=== PATIENT | female | born 1995 | race Caucasian/White ===

== ENCOUNTER 2016-07-21 02:14 | Emergency (ER) | payer BC ==
[~2016-07-21] VITALS: Ht 170.2 cm; Wt 81.6 kg
--- NOTE | 2016-07-21 02:44 | PHYS DOC ---
Past Medical History Past Medical History: P.U.D. Additional Past Medical Histor: PTSD Past Surgical History: Cholecystectomy, Tonsillectomy, Other Additional Past Surgical Histo: BREAST REDUCTION Alcohol Use: None Drug Use: None Adult General Chief Complaint Chief Complaint: ALLERGIC REACTION HPI HPI 21 yo female presenting with a moderate allergic reaction after taking her first dose of sertraline tonight around 2230 and then developed some nausea and no vomiting with some mild GI discomfort and chest discomfort. She denies any significant shortness of breath. Pt is speaking in complete sentences and saturating at 97% on RA in no acute distress. Review of Systems Review of Systems Constitutional: Denies fever or chills [] Eyes: Denies change in visual acuity, redness, or eye pain [] HENT: Denies nasal congestion or sore throat [] Respiratory: Denies cough or shortness of breath [] Cardiovascular: No additional information not addressed in HPI [] GI: Denies abdominal pain, has nausea, denies vomiting, denies bloody stools, denies diarrhea [] : Denies dysuria or hematuria [] Musculoskeletal: Denies back pain or joint pain [] Integument: Denies rash or skin lesions [] Neurologic: Denies headache, focal weakness or sensory changes [] Endocrine: Denies polyuria or polydipsia [] Current Medications Current Medications Current Medications Medications (Trade) Dose Ordered Sig/Chrystal Start Time Stop Time Status Last Admin Dose Admin Diphenhydramine HCl (Benadryl) 25 mg 1X ONCE 07/21/16 03:00 07/21/16 03:01 DC 07/21/16 02:41 25 MG Famotidine 20 mg 20 mg 1X ONCE 07/21/16 03:00 07/21/16 03:01 DC 07/21/16 02:41 20 MG Methylprednisolone Sodium Succinate (Solu-Medrol 125mg Vial) 125 mg 1X ONCE 07/21/16 03:00 07/21/16 03:01 DC 07/21/16 02:40 125 MG Ondansetron HCl (Zofran) 4 mg 1X ONCE 07/21/16 03:00 07/21/16 03:01 DC 07/21/16 02:47 4 MG Sodium Chloride (Iv Sodium Chloride 0.9% 1000ml Bag) 1,000 ml @ 1,000 mls/hr Q1H 07/21/16 03:00 07/21/16 03:59 07/21/16 02:41 1,000 MLS/HR Allergies Allergies Allergies Coded Allergies Type Severity Reaction Last Updated Verified Penicillins Allergy Intermediate Nausea and Vomiting 08/09/14 Yes Physical Exam Physical Exam Constitutional: Well developed, well nourished, no acute distress, non-toxic appearance. [] HENT: Normocephalic, atraumatic, bilateral external ears normal, oropharynx moist, no oral exudates, nose normal. [] Eyes: PERRLA, EOMI, conjunctiva normal, no discharge. [] Neck: Normal range of motion, no tenderness, supple, no stridor. [] Cardiovascular:Heart rate regular rhythm, no murmur [] Lungs & Thorax: Bilateral breath sounds clear to auscultation [] Abdomen: Bowel sounds normal, soft, no tenderness, no masses, no pulsatile masses. [] Skin: Warm, dry, no erythema, no rash. [] Back: No tenderness, no CVA tenderness. [] Extremities: No tenderness, no cyanosis, no clubbing, ROM intact, no edema. [] Neurologic: Alert and oriented X 3, normal motor function, normal sensory function, no focal deficits noted. [] Psychologic: Affect normal, judgement normal, mood normal. [] Current Patient Data Vital Signs Vital Signs Date Time Temp Pulse Resp B/P Pulse Ox O2 Delivery O2 Flow Rate FiO2 07/21/16 02:50 98.6 85 16 117/67 97 Room Air 98.6 Lab Values Laboratory Tests Test 07/21/16 03:11 07/21/16 03:16 Urine Test Negative (NEG) POC Urine HCG, Qualitative Hcg negative (Negative) EKG EKG [] Radiology/Procedures Radiology/Procedures [] Course & Med Decision Making Course & Med Decision Making Pertinent Labs and Imaging studies reviewed. (See chart for details) 21-year-old females have a mild allergic reaction will be given IV doses of Benadryl, Pepcid, site Medrol, and a fluid bolus. In no acute distress at this time saturating at 98% on room air. A counselor at length that she is to discontinue the medication she took to follow closely with her primary care doctor. I'll be prescribing her also a course of steroids and Benadryl. On my final reassessment, the patient feels much improved will be discharged with a course of prednisone and Zofran to follow closely with her primary care doctor to be placed on alternative therapy and to discontinue sertraline use. Amarjit Disclaimer Amarjit Disclaimer This electronic medical record was generated, in whole or in part, using a voice recognition dictation system. Departure Departure Impression: Primary Impression: Adverse drug reaction Disposition: HOME, SELF-CARE Admitting Physician: Other Condition: STABLE Referrals: EM BRUCE MD (PCP) Patient Instructions: Drug Reaction, GI Intolerance Additional Instructions: Please take your steroid and discontinue your use of sertraline. Follow up closely with your primary doctor to be placed on different medication. Return to the ER immediately if you develop any difficulty breathing of if your symptoms should return. Scripts Prednisone 50 Mg [id number] Mg PO DAILY #4 TAB Prov:MARIA ISABEL GONZALEZ DO 07/21/16 Ondansetron Hcl (Zofran)4 Mg Tablet4 Mg PO BID PRN NAUSEA/VOMITING #10 TAB Prov:MARIA ISABEL GONZALEZ DO 07/21/16 MARIA ISABEL GONZALEZ DO Jul 21, 2016 02:44
[2016-07-21] MEDS ORDERED: DIPHENHYDRAMINE 50 MG/ML VIAL IV ONE (03:00)
[2016-07-21] MEDS ORDERED: ONDANSETRON PF 4 MG/2 ML VIAL. IV ONE (03:00)
[2016-07-21] MEDS ORDERED: IV NORMAL SALINE 1000ML BAG 1,000 ML IV SCH (03:00)
[2016-07-21] MEDS ORDERED: methylPREDNISolone SOD SUCC PF 125 MG/2 ML VIAL. IV ONE (03:00)
[2016-07-21] MEDS ORDERED: FAMOTIDINE 20 MG/2 ML VIAL IVP ONE (03:00)
[2016-07-21 03:25] LABS: NEG OBC UR NEG; POS OBC UR POS
[2016-07-21] MEDS ORDERED: PRED50TA PO (03:40)
[2016-07-21] MEDS ORDERED: ONDA4TAB7 PO (03:40)
[2016-07-21 03:46] VITALS: BP 102/52
== END 2016-07-21 04:02 | disposition home or self-care (01) ==
LOC: ER 02:14
DX: T43.225A Adverse effect of selective serotonin reuptake inhibitors, initial encounter (principal); R11.0 Nausea; R07.89 Other chest pain; F43.10 Post-traumatic stress disorder, unspecified; Z88.0 Allergy status to penicillin; Y92.89 Other specified places as the place of occurrence of the external cause
CPT/HCPCS: 81025; 84703; 96361; 96374; 96375; 99284; J1200; J2405; J2930; J7030; S0028

== ENCOUNTER 2016-08-03 00:50 | Emergency (ER) | payer BC ==
[~2016-08-03] VITALS: Ht 167.6 cm; Wt 88.9 kg
[~2016-08-03 00:50] MED LIST: ONDA4TAB7 PO; PRED50TA PO
[2016-08-03 01:15] VITALS: BP 130/88
[2016-08-03] MEDS ORDERED: ONDANSETRON ODT 4 MG TAB.RAPDIS PO ONE (01:30)
[2016-08-03] MEDS ORDERED: ONDA4TAB7 PO (02:15)
[2016-08-03] MEDS ORDERED: BENZ100C PO (02:15)
[2016-08-03 02:16] LABS: OBC FLU VALID
[2016-08-03] MEDS ORDERED: BENZONATATE 100 MG CAPSULE. PO ONE (02:30)
[2016-08-03] MEDS ORDERED: NAPROXEN 250 MG TABLET PO ONE (02:30)
--- NOTE | 2016-08-03 07:42 | ED.ADGEN ---
Past Medical History Past Medical History: Anxiety, Depression, P.U.D. Additional Past Medical Histor: PTSD, ULCERS HYPOGLYCEMIA Past Surgical History: Cholecystectomy, Tonsillectomy, Other Additional Past Surgical Histo: BREAST REDUCTION Alcohol Use: None Drug Use: None Adult General Chief Complaint Chief Complaint: FLU SYMPTOM HPI HPI Patient is a 21 year old woman, history of PTSD, GERD, anxiety, who presents to the emergency department with a complaint of generalized body aches, malaise , cough, sore throat, rhinorrhea, fever, chills, nausea, vomiting and diarrhea over the past several days. Patient denies any sick contacts or exposures. States that she did not receive a flu vaccination this year. States that she did take ibuprofen at home several hours before coming to the ED. Is currently on her menses. Multiple episodes of vomiting and diarrhea, food and fluid, no bloody stools or bloody emesis. No injuries. No urinary complaints. No recent travel or surgery, no exposures. Review of Systems Review of Systems Constitutional: Fevers and chills. Body aches. Eyes: Denies change in visual acuity. [] HENT: Nasal congestion and sore throat. Respiratory: No shortness of breath, cough is nonproductive. Cardiovascular: Denies chest pain or edema. [] GI: Epigastric abdominal pain, nausea, vomiting, diarrhea, no bloody stools or bloody emesis. : Denies dysuria. [] Musculoskeletal: Denies back pain or joint pain. [] Integument: Denies rash. [] Neurologic: Denies headache, focal weakness or sensory changes. [] Endocrine: Denies polyuria or polydipsia. [] Lymphatic: Denies swollen glands. [] Psychiatric: Denies depression or anxiety. [] Current Medications Current Medications Current Medications Medications (Trade) Dose Ordered Sig/Chrystal Start Time Stop Time Status Last Admin Dose Admin Benzonatate (Tessalon Perle) 100 mg 1X ONCE 08/03/16 02:30 08/03/16 02:31 DC Naproxen (Naprosyn) 250 mg 1X ONCE 08/03/16 02:30 08/03/16 02:31 DC Ondansetron HCl (Zofran Odt) 4 mg 1X ONCE 08/03/16 01:30 08/03/16 01:31 DC 08/03/16 01:31 4 MG Allergies Allergies Allergies Coded Allergies Type Severity Reaction Last Updated Verified Penicillins Allergy Intermediate Nausea and Vomiting 08/09/14 Yes sertraline Allergy Intermediate 08/03/16 Yes Physical Exam Physical Exam Constitutional: Well developed, well nourished, no acute distress, non-toxic appearance. [] HENT: Normocephalic, atraumatic, bilateral external ears normal, oropharynx moist, oropharynx is mildly injected, postnasal drip, with mild swelling of the turbinates with clear rhinorrhea. Eyes: PERRLA, EOMI, conjunctiva normal, no discharge. [] Neck: Normal range of motion, no tenderness, supple, no stridor. [] Cardiovascular:Heart rate regular rhythm, no murmur, S1, S2, rubs or gallops. [] Lungs & Thorax: Bilateral breath sounds clear to auscultation , no wheezing, rhonchi, rales. No wall crepitus, patient with mild tenderness palpation in the lateral ribs and epigastric region. Abdomen: Bowel sounds normal, soft, mild initial patient in the epigastric region, no rebound, rigidity, no guarding, no masses, no pulsatile masses. [] Skin: Warm, dry, no erythema, no rash. [] Back: No tenderness, no CVA tenderness. [] Extremities: No tenderness, no cyanosis, no clubbing, ROM intact, no edema. [ Negative Homans sign.] Neurologic: Alert and oriented X 3, normal motor function, normal sensory function, no focal deficits noted. [] Psychologic: Affect normal, judgement normal, mood normal. [] Current Patient Data Vital Signs Vital Signs Date Time Temp Pulse Resp B/P Pulse Ox O2 Delivery O2 Flow Rate FiO2 08/03/16 01:15 97.8 81 16 130/88 97 Room Air 97.8 Lab Values Laboratory Tests Test 08/03/16 00:25 08/03/16 01:20 POC Urine HCG, Qualitative Hcg negative (Negative) Influenza Type A Antigen Negative (NEGATIVE) Influenza Type B Antigen Negative (NEGATIVE) EKG EKG ECG: Rhythm strip: Sinus rhythm, heart rate 81 beats/minute, no ectopy. As interpreted by me. Radiology/Procedures Radiology/Procedures Not indicated. [] Course & Med Decision Making Course & Med Decision Making Pertinent Labs and Imaging studies reviewed. (See chart for details) Patient's examination and history is consistent with a viral infection. Patient is tolerating fluids without issue. Is afebrile in the emergency department without use of antipyretics. Vital signs within normal limits. No evidence of lower airspace disease, no indication for additional imaging. Influenza flu swab and hCG ordered. I did discuss use of supportive measures including a Profen, acetaminophen, Tessalon Perle, and Zofran, along with dietary instructions and stay well-hydrated and rest with patient. Patient was given Zofran in the ED, no x-rays episodes of vomiting during her course. Patient stated she nurse that she was not willing to wait for her flu swab, patient was given instructions and medications including Tessalon Perle over instructions. Patient exited the emergency department with her . Flu swab did result and was negative. Dragon Disclaimer Dragon Disclaimer This electronic medical record was generated, in whole or in part, using a voice recognition dictation system. Departure Impression: Primary Impression: Viral infection Disposition: 01 HOME, SELF-CARE Condition: IMPROVED Scripts Ondansetron Hcl (Zofran)4 Mg Tablet1 Tab PO PRN Q6-8HRS #10 TAB Prov:CLARENCE MATTSON DO 08/03/16 Benzonatate (Tessalon Perle)100 Mg [id number] Mg PO TID PRN COUGH #12 CAP Prov:CLARENCE MATTSON DO 08/03/16 CLARENCE MATTSON DO Aug 03, 2016 07:42
== END 2016-08-03 02:20 | disposition home or self-care (01) ==
LOC: ER 00:50
DX: B34.9 Viral infection, unspecified (principal); F43.10 Post-traumatic stress disorder, unspecified; K21.9 Gastro-esophageal reflux disease without esophagitis; Z87.11 Personal history of peptic ulcer disease; Z90.49 Acquired absence of other specified parts of digestive tract; Z90.89 Acquired absence of other organs; Z88.0 Allergy status to penicillin; Z88.8 Allergy status to other drugs, medicaments and biological substances
CPT/HCPCS: 81025; 87804; 99284; Q0162

== ENCOUNTER 2016-10-28 12:33 | Emergency (ER) | payer BC ==
[~2016-10-28] VITALS: Ht 167.6 cm; Wt 83.5 kg
[~2016-10-28 12:33] MED LIST changes: +BENZ100C PO
--- NOTE | 2016-10-28 13:12 | ED.ADGEN ---
Past Medical History Past Medical History: Anxiety, Depression, P.U.D. Additional Past Medical Histor: PTSD, ULCERS HYPOGLYCEMIA Past Surgical History: Cholecystectomy, Tonsillectomy, Other Additional Past Surgical Histo: BREAST REDUCTION Alcohol Use: None Drug Use: None Adult General Chief Complaint Chief Complaint: CHEST WALL PAIN HPI HPI Patient is a 21 year old female with h/o PTSD who presents with substernal chest pain radiating to neck and left arm. Symptoms been intermittent and started while at work approximately 3 hours prior to ED arrival. Patient reports anxiety and history of PTSD. Also reports left shoulder pain, tenderness worse with palpation and repeated arm movement. 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 She denies shortness breath, palpitations, leg pain or swelling. No history of DVT or PE. Patient's last menstrual period was 5 weeks ago. Review of Systems Review of Systems ROS as per HPI. Allergies Allergies Allergies Coded Allergies Type Severity Reaction Last Updated Verified Penicillins Allergy Intermediate Nausea and Vomiting 08/09/14 Yes sertraline Allergy Intermediate 08/03/16 Yes Physical Exam Physical Exam Constitutional: Well developed, well nourished, anxious, flickering of upper eyelids while talking. HENT: Normocephalic, atraumatic, bilateral external ears normal, oropharynx moist, no oral exudates, nose normal. Eyes: PERRL. Neck: Normal range of motion, no tenderness. Cardiovascular:Heart rate regular rhythm, no murmur. Neg Homans 's signs. Lungs & Thorax: Bilateral breath sounds clear to auscultation. Abdomen: Bowel sounds normal, soft, no tenderness. Skin: Warm, dry. Back: No tenderness. Extremities: Principal left shoulder pain. Worse with palpation range of motion. Neurologic: Alert and oriented X 3, normal motor function, normal sensory function, no focal deficits noted. Psychologic: Affect, anxious Current Patient Data Vital Signs Vital Signs Date Time Temp Pulse Resp B/P (MAP) Pulse Ox O2 Delivery O2 Flow Rate FiO2 10/28/16 15:02 80 16 101/69 (80) 97 Room Air 10/28/16 12:40 98.6 98.6 Lab Values Laboratory Tests Test 10/28/16 13:20 White Blood Count 7.3 x10^3/uL (4.0-11.0) Red Blood Count 4.35 x10^6/uL (3.50-5.40) Hemoglobin 12.7 g/dL (12.0-15.5) Hematocrit 37.3 % (36.0-47.0) Mean Corpuscular Volume 86 fL (79-100) Mean Corpuscular Hemoglobin 29 pg (25-35) Mean Corpuscular Hemoglobin Concent 34 g/dL (31-37) Red Cell Distribution Width 12.5 % (11.5-14.5) Platelet Count 236 x10^3/uL (140-400) Neutrophils (%) (Auto) 54 % (31-73) Lymphocytes (%) (Auto) 30 % (24-48) Monocytes (%) (Auto) 8 % (0-9) Eosinophils (%) (Auto) 6 % (0-3) H Basophils (%) (Auto) 1 % (0-3) Neutrophils # (Auto) 4.0 x10^3uL (1.8-7.7) Lymphocytes # (Auto) 2.2 x10^3/uL (1.0-4.8) Monocytes # (Auto) 0.6 x10^3/uL (0.0-1.1) Eosinophils # (Auto) 0.4 x10^3/uL (0.0-0.7) Basophils # (Auto) 0.1 x10^3/uL (0.0-0.2) D-Dimer (Mary) < 0.27 ug/mlFEU Sodium Level 138 mmol/L (136-145) Potassium Level 3.5 mmol/L (3.5-5.1) Chloride Level 105 mmol/L (98-107) Carbon Dioxide Level 27 mmol/L (21-32) Anion Gap 6 (6-14) Blood Urea Nitrogen 8 mg/dL (7-20) Creatinine 0.7 mg/dL (0.6-1.0) Estimated GFR (Cockcroft-Gault) 103.7 BUN/Creatinine Ratio 11 (6-20) Glucose Level 93 mg/dL (70-99) Calcium Level 9.0 mg/dL (8.5-10.1) Total Bilirubin 0.2 mg/dL (0.2-1.0) Aspartate Amino Transferase (AST) 14 U/L (15-37) L Alanine Aminotransferase (ALT) 17 U/L (14-59) Alkaline Phosphatase 79 U/L (46-116) Total Protein 7.1 g/dL (6.4-8.2) Albumin 3.8 g/dL (3.4-5.0) Albumin/Globulin Ratio 1.2 (1.0-1.7) Serum Test, Qualitative Negative (NEG) Laboratory Tests 10/28/16 13:20 Laboratory Tests 10/28/16 13:20 EKG EKG [] Radiology/Procedures Radiology/Procedures [] Course & Med Decision Making Course & Med Decision Making Pertinent Labs and Imaging studies reviewed. (See chart for details) [Reproducible shoulder pains. Chronic anxiety. Patient reassured. Patient instructed to follow up with PCP. Amarjit Disclaimer Dragon Disclaimer This electronic medical record was generated, in whole or in part, using a voice recognition dictation system. MARK WALTERS DO Oct 28, 2016 13:12
[2016-10-28 13:31] LABS: BASO # 0.1 x10^3/uL (0.0-0.2); BASO % 1 % (0-3); EOS % 6 % (0-3); HEMATOCRIT 37.3 % (36.0-47.0); HEMOGLOBIN 12.7 g/dL (12.0-15.5); LYMPH # 2.2 x10^3/uL (1.0-4.8); LYMPH % 30 % (24-48); MEAN CORPUSCULAR HEMOGLOBIN 29 pg (25-35); MEAN CORPUSCULAR HGB CONC 34 g/dL (31-37); MEAN CORPUSCULAR VOLUME 86 fL (79-100); MONO % 8 % (0-9); NEUT % 54 % (31-73); PLATELET COUNT 236 x10^3/uL (140-400); RED BLOOD COUNT 4.35 x10^6/uL (3.50-5.40); RED CELL DISTRIBUTION WIDTH 12.5 % (11.5-14.5); WHITE BLOOD COUNT 7.3 x10^3/uL (4.0-11.0)
[2016-10-28 13:37] LABS: CREATININE 0.7 mg/dL (0.6-1.0); GFR 103.7; POTASSIUM 3.5 mmol/L (3.5-5.1)
[2016-10-28 13:43] LABS: ALBUMIN 3.8 g/dL (3.4-5.0); ALBUMIN/GLOBULIN RATIO 1.2 (1.0-1.7); TOTAL BILIRUBIN 0.2 mg/dL (0.2-1.0); TOTAL PROTEIN 7.1 g/dL (6.4-8.2)
[2016-10-28 13:50] LABS: NEG OBC SER NEG; POS OBC SER POS
--- NOTE | 2016-10-28 14:23 | EKG ---
[facility] [address] [place] [address] Test Date: 2016-10-28 Test Time: 12:40:42 Pat Name: YORDAN FELDER Department: Room: Gender: F Hoop Puncher: : 1995 Requested By: MARK WALTERS Order Number: [id number] Reading MD: Curtis Oden Measurements Intervals Coleman Rate: 77 P: 34 UT: 144 QRS: 43 QRSD: 82 T: 16 QT: 380 QTc: 432 Interpretive Statements SINUS RHYTHM Electronically Signed On 10-29-2016 11:07:13 CDT by Curtis Oden
[2016-10-28 15:02] VITALS: BP 101/69
== END 2016-10-28 15:08 | disposition home or self-care (01) ==
LOC: ER 12:33
DX: M25.512 Pain in left shoulder (principal); F41.9 Anxiety disorder, unspecified; F43.10 Post-traumatic stress disorder, unspecified; F32.9 Major depressive disorder, single episode, unspecified; Z88.0 Allergy status to penicillin; Z87.11 Personal history of peptic ulcer disease; Z90.49 Acquired absence of other specified parts of digestive tract; Z88.8 Allergy status to other drugs, medicaments and biological substances
CPT/HCPCS: 36415; 80053; 84703; 85027; 85379; 93005; 99285-25

== ENCOUNTER 2017-04-14 14:38 | Emergency (ER) | payer BC ==
[2017-04-14] MEDS ORDERED: IV NORMAL SALINE 1000ML BAG 1,000 ML IV SCH (15:40)
[2017-04-14 15:52] LABS: BILIRUBIN,URINE NEGATIVE (NEG); GLUCOSE,URINE NEGATIVE (NEG); NITRITE,URINE NEGATIVE (NEG); PROTEIN,URINE NEGATIVE (NEG-TRACE); UROBILINOGEN,URINE 0.2 mg/dL (0.2 mg/dL)
--- NOTE | 2017-04-14 15:53 | PHYS DOC ---
Past Medical History Past Medical History: Anxiety, Depression, P.U.D. Additional Past Medical Histor: PTSD, ULCERS HYPOGLYCEMIA Past Surgical History: Cholecystectomy, Tonsillectomy, Other Additional Past Surgical Histo: BREAST REDUCTION Alcohol Use: None Drug Use: None Adult General Chief Complaint Chief Complaint: ABDOMINAL PAIN IN HPI HPI Patient is a 22 year old female who presents with complaint of lower abdominal pain. Patient is approximately 8 weeks with last menstrual period on January 24, 2017. Patient states that she has been having intermittent lower abdominal and pelvic cramping. On my evaluation, the patient rates her pain currently is 8 out of 10. Patient notes that she had small pinkish discharge earlier today but has not noticed any bleeding associated with her symptoms. Patient has had nausea but no vomiting. The patient is currently following with Dr. Tyler for care. Patient has not taken any medications to help with her symptoms. Patient states that she has been drinking water in normal amounts but has not been eating well due to nausea. Review of Systems Review of Systems Constitutional: Denies fever or chills [] Eyes: Denies change in visual acuity, redness, or eye pain [] HENT: Denies nasal congestion or sore throat [] Respiratory: Denies cough or shortness of breath [] Cardiovascular: Denies chest pain or edema[] GI: Lower abdominal and pelvic pain, nausea, denies vomiting or diarrhea[] : Denies dysuria or hematuria [] Musculoskeletal: Denies back pain or joint pain [] Integument: Denies rash or skin lesions [] Neurologic: Denies headache, focal weakness or sensory changes [] All other systems were reviewed and found to be within normal limits, except as documented in this note. Current Medications Current Medications Current Medications Medications (Trade) Dose Ordered Sig/[facility] Start Time Stop Time Status Last Admin Dose Admin Acetaminophen (Tylenol) 650 mg 1X ONCE 04/14/17 16:00 04/14/17 16:01 DC 04/14/17 16:12 650 MG Ondansetron HCl (Zofran) 4 mg 1X ONCE 04/14/17 16:00 04/14/17 16:01 DC 04/14/17 16:12 4 MG Sodium Chloride 1,000 ml @ 1,000 mls/hr Q1H 04/14/17 15:40 04/14/17 16:39 DC 04/14/17 16:12 1,000 MLS/HR Allergies Allergies Allergies Coded Allergies Type Severity Reaction Last Updated Verified Penicillins Allergy Intermediate Nausea and Vomiting 08/09/14 Yes sertraline Allergy Intermediate 08/03/16 Yes Physical Exam Physical Exam Constitutional: Alert, afebrile, appears in mild to moderate discomfort. [] HENT: Normocephalic, atraumatic, bilateral external ears normal, oropharynx moist, no oral exudates, nose normal. [] Eyes: PERRLA, EOMI, conjunctiva normal, no discharge. [] Neck: Normal range of motion, no tenderness, supple, no stridor. [] Cardiovascular:Heart rate regular rhythm, no murmur [] Lungs & Thorax: Bilateral breath sounds clear to auscultation [] Abdomen: Bowel sounds normal, soft, suprapubic tenderness to palpation with guarding, no rebound tenderness, no masses, no pulsatile masses. Pelvic: Normal external exam, no evidence of blood in vaginal canal, cervical os closed, no cervical motion tenderness, mild midline tenderness to palpation, no adnexal tenderness on bimanual exam[] Skin: Warm, dry, no erythema, no rash. [] Back: No tenderness, no CVA tenderness. [] Extremities: No tenderness, no cyanosis, no clubbing, ROM intact, no edema. [] Neurologic: Alert and oriented X 3, normal motor function, normal sensory function, no focal deficits noted. [] Current Patient Data Vital Signs Vital Signs Date Time Temp Pulse Resp B/P (MAP) Pulse Ox O2 Delivery O2 Flow Rate FiO2 04/14/17 17:15 70 18 106/61 (76) 98 Room Air 04/14/17 15:05 98.4 98.4 Lab Values Laboratory Tests Test 04/14/17 15:16 04/14/17 15:30 04/14/17 16:10 POC Urine HCG, Qualitative Hcg positive (Negative) Urine Collection Type Unknown Urine Color Yellow Urine Clarity Clear Urine pH 6.0 Urine Specific [place] 1.025 Urine Protein Negative mg/dL (NEG-TRACE) Urine Glucose (UA) Negative mg/dL (NEG) Urine Ketones (Stick) Negative mg/dL (NEG) Urine Blood Negative (NEG) Urine Nitrite Negative (NEG) Urine Bilirubin Negative (NEG) Urine Urobilinogen Dipstick 0.2 mg/dL (0.2 mg/dL) Urine Leukocyte Esterase Negative (NEG) Urine RBC 0 /HPF (0-2) Urine WBC 1-4 /HPF (0-4) Urine Squamous Epithelial Cells Mod /LPF Urine Bacteria Moderate /HPF (0-FEW) Urine Mucus Marked /LPF White Blood Count 6.5 x10^3/uL (4.0-11.0) Red Blood Count 4.44 x10^6/uL (3.50-5.40) Hemoglobin 12.8 g/dL (12.0-15.5) Hematocrit 37.7 % (36.0-47.0) Mean Corpuscular Volume 85 fL (79-100) Mean Corpuscular Hemoglobin 29 pg (25-35) Mean Corpuscular Hemoglobin Concent 34 g/dL (31-37) Red Cell Distribution Width 12.0 % (11.5-14.5) Platelet Count 262 x10^3/uL (140-400) Neutrophils (%) (Auto) 55 % (31-73) Lymphocytes (%) (Auto) 30 % (24-48) Monocytes (%) (Auto) 10 % (0-9) H Eosinophils (%) (Auto) 4 % (0-3) H Basophils (%) (Auto) 1 % (0-3) Neutrophils # (Auto) 3.6 x10^3uL (1.8-7.7) Lymphocytes # (Auto) 1.9 x10^3/uL (1.0-4.8) Monocytes # (Auto) 0.6 x10^3/uL (0.0-1.1) Eosinophils # (Auto) 0.3 x10^3/uL (0.0-0.7) Basophils # (Auto) 0.0 x10^3/uL (0.0-0.2) Maternal Serum HCG Beta Subunit 70838 mIU/mL (0-5) H Sodium Level 137 mmol/L (136-145) Potassium Level 3.6 mmol/L (3.5-5.1) Chloride Level 104 mmol/L (98-107) Carbon Dioxide Level 26 mmol/L (21-32) Anion Gap 7 (6-14) Blood Urea Nitrogen 9 mg/dL (7-20) Creatinine 0.7 mg/dL (0.6-1.0) Estimated GFR (Cockcroft-Gault) 102.8 BUN/Creatinine Ratio 13 (6-20) Glucose Level 82 mg/dL (70-99) Calcium Level 9.1 mg/dL (8.5-10.1) Magnesium Level 1.9 mg/dL (1.8-2.4) Total Bilirubin 0.5 mg/dL (0.2-1.0) Aspartate Amino Transferase (AST) 14 U/L (15-37) L Alanine Aminotransferase (ALT) 17 U/L (14-59) Alkaline Phosphatase 64 U/L (46-116) Total Protein 7.2 g/dL (6.4-8.2) Albumin 3.7 g/dL (3.4-5.0) Albumin/Globulin Ratio 1.1 (1.0-1.7) Laboratory Tests 04/14/17 16:10 Laboratory Tests 04/14/17 16:10 Microbiology 04/14/17 Wet Prep - Final, Complete EKG EKG Not performed[] Radiology/Procedures Radiology/Procedures [facility] [address] [place], [place] [id number] IMAGING REPORT Signed PATIENT: YORDAN RODRIGUES ACCOUNT: [id number] : 1995 LOCATION: ER AGE: 22 SEX: F EXAM STATUS: REG ER ORD. PHYSICIAN: MARTÍN NEWTON MD REASON: abdominal pain, LMP 01/29 PROCEDURE: OB <14 WKS W/TV Ultrasound OB pelvis Indication: Pelvic pain Technique: Grayscale, color Doppler and spectral waveform ultrasound images of the pelvis obtained. Comparison: None Findings: The uterus measures 9 x 8 x 5 cm (longitudinal, transverse, AP). Single intrauterine gestation sac is noted with pole measuring 0.85 cm corresponding to estimated gestation age of 6 weeks 6 days. Cardiac activity is demonstrated at the rate of 126 bpm. Yolk sac is visualized. Cervix is within normal limits. The left ovary measures 5.0 x 3.1 x 2.1 cm with a thick walled cyst measuring 2.6 x 2.2 x 2.6 cm with mural nodularity. Blood flow is seen in the left ovary. The right ovary measures 4.0 x 2.0 x 2.1 cm and demonstrates evidence of blood flow. Impression: 1. Single viable intrauterine with estimated gestation age of 6 weeks 6 days. 2. Thick-walled cystic lesion in the left ovary with mural nodularity most likely represents corpus luteal cyst of . However, although less likely, heterotopic not ruled out. Follow-up ultrasound recommended. DICTATED and SIGNED BY: MICHELL CARLSON DO DATE: 04/14/17 1720 CC: MARTÍN NEWTON MD; NO PCP ~ [] Course & Med Decision Making Course & Med Decision Making Pertinent Labs and Imaging studies reviewed. (See chart for details) Patient was given IV fluids, Zofran, and Tylenol in the emergency department. Symptoms improving on reevaluation. Symptoms may be due to dehydration. Ultrasound shows viable intrauterine . 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 Advised return emergency department for any worsening symptoms. Patient was understanding and in agreement with treatment plan. Dragon Disclaimer Dragon Disclaimer This electronic medical record was generated, in whole or in part, using a voice recognition dictation system. Departure Departure Impression: Primary Impression: Abdominal pain during Disposition: 01 HOME, SELF-CARE Condition: IMPROVED Referrals: NO PCP (PCP) CHARLEY TYLER DO Patient Instructions: Abdominal Pain During Additional Instructions: Follow-up with Dr. Tyler in 2-3 days for reevaluation. Return to the emergency department for any worsening symptoms. Problem Qualifiers Primary Impression: Abdominal pain during Trimester: first trimester Qualified Codes: O26.891 - Other specified related conditions, first trimester; R10.9 - Unspecified abdominal pain MARTÍN NEWTON MD Apr 14, 2017 15:53
[2017-04-14] MEDS ORDERED: ACETAMINOPHEN 325 MG TABLET. PO ONE (16:00)
[2017-04-14] MEDS ORDERED: ONDANSETRON PF 4 MG/2 ML VIAL. IV ONE (16:00)
[2017-04-14 16:13] LABS: BACTERIA,URINE MODERATE /HPF (0-FEW); RBC,URINE 0 /HPF (0-2); SQUAMOUS EPITHELIAL CELL,UR MOD /LPF
[2017-04-14 16:32] LABS: BASO % 1 % (0-3); EOS % 4 % (0-3); HEMATOCRIT 37.7 % (36.0-47.0); HEMOGLOBIN 12.8 g/dL (12.0-15.5); LYMPH # 1.9 x10^3/uL (1.0-4.8); LYMPH % 30 % (24-48); MEAN CORPUSCULAR HEMOGLOBIN 29 pg (25-35); MEAN CORPUSCULAR HGB CONC 34 g/dL (31-37); MEAN CORPUSCULAR VOLUME 85 fL (79-100); MONO % 10 % (0-9); NEUT % 55 % (31-73); PLATELET COUNT 262 x10^3/uL (140-400); RED BLOOD COUNT 4.44 x10^6/uL (3.50-5.40); WHITE BLOOD COUNT 6.5 x10^3/uL (4.0-11.0)
[2017-04-14 16:48] LABS: CALCIUM 9.1 mg/dL (8.5-10.1); CREATININE 0.7 mg/dL (0.6-1.0); GFR 102.8; POTASSIUM 3.6 mmol/L (3.5-5.1)
[2017-04-14 16:54] LABS: ALBUMIN 3.7 g/dL (3.4-5.0); ALBUMIN/GLOBULIN RATIO 1.1 (1.0-1.7); MAGNESIUM 1.9 mg/dL (1.8-2.4); TOTAL BILIRUBIN 0.5 mg/dL (0.2-1.0); TOTAL PROTEIN 7.2 g/dL (6.4-8.2)
--- NOTE | 2017-04-14 17:30 | RAD ---
Ultrasound OB pelvis Indication: Pelvic pain Technique: Grayscale, color Doppler and spectral waveform ultrasound images of the pelvis obtained. Comparison: None Findings: The uterus measures 9 x 8 x 5 cm (longitudinal, transverse, AP). Single intrauterine gestation sac is noted with pole measuring 0.85 cm corresponding to estimated gestation age of 6 weeks 6 days. Cardiac activity is demonstrated at the rate of 126 bpm. Yolk sac is visualized. Cervix is within normal limits. The left ovary measures 5.0 x 3.1 x 2.1 cm with a thick walled cyst measuring 2.6 x 2.2 x 2.6 cm with mural nodularity. Blood flow is seen in the left ovary. The right ovary measures 4.0 x 2.0 x 2.1 cm and demonstrates evidence of blood flow. Impression: 1. Single viable intrauterine with estimated gestation age of 6 weeks 6 days. 2. Thick-walled cystic lesion in the left ovary with mural nodularity most likely represents corpus luteal cyst of . However, although less likely, heterotopic not ruled out. Follow-up ultrasound recommended.
[2017-04-14 18:51] VITALS: BP 110/70
== END 2017-04-14 19:04 | disposition home or self-care (01) ==
LOC: ER 14:38
DX: O26.891 Other specified pregnancy related conditions, first trimester (principal); R10.2 Pelvic and perineal pain; O99.341 Other mental disorders complicating pregnancy, first trimester; F32.9 Major depressive disorder, single episode, unspecified; F43.10 Post-traumatic stress disorder, unspecified; Z3A.08 8 weeks gestation of pregnancy; Z88.0 Allergy status to penicillin; Z88.8 Allergy status to other drugs, medicaments and biological substances
CPT/HCPCS: 36415; 76801; 76817; 80053; 81001; 81025; 83735; 84702; 85025; 86850; 86900; 86901; 87086; 87491; 87591; 96361; 96374; 99285; J2405; J7030; Q0111

== ENCOUNTER 2017-05-23 23:55 | Emergency (ER) | payer OTHER, BC ==
[2017-05-24 00:19] LABS: URINE HCG POC HCG POSITIVE (Negative)
[2017-05-24 00:28] LABS: BILIRUBIN,URINE NEGATIVE (NEG); CLARITY,URINE CLEAR; COLOR,URINE YELLOW; GLUCOSE,URINE NEGATIVE (NEG); NITRITE,URINE NEGATIVE (NEG); PROTEIN,URINE NEGATIVE (NEG-TRACE)
[2017-05-24] MEDS: ONDANSETRON ODT 4 MG TAB.RAPDIS. PO (00:40)
[2017-05-24 00:45] LABS: BACTERIA,URINE MANY /HPF (0-FEW); RBC,URINE OCC /HPF (0-2); SQUAMOUS EPITHELIAL CELL,UR MOD /LPF
[2017-05-24] MEDS: NITROFURANTOIN MONOHYD/M-CRYST 100 MG CAPSULE. PO (01:39)
== END 2017-05-24 01:41 | disposition home or self-care (01) ==
LOC: ER 23:55
DX: O23.41 Unspecified infection of urinary tract in pregnancy, first trimester (principal); O21.0 Mild hyperemesis gravidarum; Z3A.15 15 weeks gestation of pregnancy; F43.10 Post-traumatic stress disorder, unspecified; Z90.49 Acquired absence of other specified parts of digestive tract; Z88.0 Allergy status to penicillin; Z88.8 Allergy status to other drugs, medicaments and biological substances
CPT/HCPCS: 76801; 81001; 81025; 87086; 99285-25; Q0162